=== PATIENT | male | born 1970 | race Hispanic/Latino ===

== ENCOUNTER → 2019-10-28 | Day surgery (SDC) | payer OTHER ==
[2019-10-24 10:06] LABS: ANION GAP 13.5 mmol/L (8-16); BLOOD UREA NITROGEN 20 mg/dL (7-26); BUN/CREATININE RATIO 26 (6-25); CALCIUM 8.8 mg/dL (8.4-10.2); CARBON DIOXIDE 24 mmol/L (22-29); CHLORIDE 106 mmol/L (98-107); CREATININE, SERUM 0.78 mg/dL (0.72-1.25); EST GLOMERULAR FILTRATION RATE > 60 ML/MIN (60-); GLUCOSE 139 mg/dL (74-118); POTASSIUM 4.5 mmol/L (3.5-5.1); SODIUM 139 mmol/L (136-145)
[~2019-10-28] VITALS: Ht 165.1 cm; Wt 108.9 kg
[~2019-10-28] MED LIST: B&O 60MG R/S 60 MG SUPP PR ONE; CEFTRIAXONE SOD 1 GM/NS 50 ML 50 ML IV ONE; DEXAMETHASONE SOD PHOS INJ 4 MG/ML VIAL ONE; FENTANYL CITRATE/PF 100MCG/2 ML INJ ONE; GENTAMICIN 80MG/NS 100 ML 200 ML IV ONE; IOPAMIDOL 300MG/ML 50ML INFUS..BTL IV ONE; LIDOCAINE HCL 2% LOCAL INJ 5 ML SDV VIAL INJ ONE; LISINOPRIL10 MG PO; METFORMIN HCL500 MG PO; MIDAZOLAM HCL 2 MG/2 ML VIAL ONE; ONDANSETRON HCL INJ 2MG/ML 2ML 2 MG/ML VIAL ONE; PROPOFOL IV EMULSION 10 MG/ML 20 ML VIAL ONE; SEVOFLURANE INHAL SOLN 250 ML PEN BTL ONE
[2019-10-28 13:55] VITALS: BP 120/71
--- NOTE | 2019-10-29 19:54 | Operative Report ---
DATE OF PROCEDURE: 10/28/2019 SURGEON: Gabino Lafleur MD PREOPERATIVE DIAGNOSES: 1. Obstructive BPH. 2. Urinary tract infections. 3. Microscopic hematuria. 4. Fairly severe phimosis, needing circumcision. POSTOPERATIVE DIAGNOSES: 1. Obstructive BPH. 2. Urinary tract infections. 3. Microscopic hematuria. 4. Fairly severe phimosis, needing circumcision. OPERATIONS PERFORMED: 1. Cystourethroscopy with bilateral ureteral catheterization and retrograde ureteropyelography (separate procedure performed for microhematuria and urinary tract infections). 2. Interpretation of retrograde ureteropyelography. 3. Supervision of fluoroscopy, no radiologist present. 4. Cystourethroscopy with implantation of 4 UroLift implants (separate procedure performed for the obstructive BPH). ANESTHESIA: General. COMPLICATIONS: None. CLINICAL SUMMARY: Oh See is a 49-year-old man with the above preoperative diagnoses. He was brought for the above procedures. He is aware of the risks of bleeding, infection, injury to adjacent structures, need for additional procedures and he elected to proceed. OPERATIVE PROCEDURE IN DETAIL: Informed consent was verified. Oh See was properly identified, taken to the operating room, placed on the cystoscopy table in supine position. Anesthesia was uneventfully begun. The patient was then carefully and gently repositioned in dorsal lithotomy position with all pressure points well padded. His genitalia were prepared and draped in usual sterile fashion. The cystoscope sheath with the visual obturator in place was atraumatically inserted into the patient's urethra. It was guided down the unremarkable distal urethra through the normal sphincteric region through the prostate bed, which was significant for visually obstructing bilobar BPH with a slightly elevated median bar. We entered the patient's bladder. Panendoscopy revealed grade 1 trabeculations, but no tumors, no stones, and no diverticula. No suspicious mucosal lesions were identified. An 8-Yi catheter was used to cannulate each ureter and retrograde ureteropyelograms were performed. Interpretation of retrograde ureteropyelography contrast was instilled in retrograde fashion bilaterally. There were no tumors, no stones, and no diverticula. Unobstructed drainage was observed bilaterally fluoroscopically. There was medial deviation of the right ureter as it coursed over the iliac vessel. The cystoscope was withdrawn. The UroLift cystoscope was atraumatically placed with visual obturator. Four UroLift implants were then deployed. Two implants were deployed, 1.5 cm distal to the bladder neck anterolaterally and two were deployed anterolaterally at the level of the verumontanum. This resulted in relatively open prostate bed. The patient's bladder was drained. The scope was withdrawn. A belladonna opium suppository was placed revealing a 40 g prostate that is smooth and nonfluctuant and without any nodules. The patient was then uneventfully reversed from anesthesia and taken to the recovery room in stable condition. There were no complications to the procedure. The patient tolerated the procedure well. Estimated blood loss was minimal. Explicit postoperative instructions were given. We will plan to follow the patient up in the office, at which point, we will perform uroflowmetry and bladder ultrasonography. Ongoing urological followup is a must. At some point, the patient will need a circumcision. MD KEITH Zamora/JOHNNAL /[id number]
== END | disposition home or self-care (01) ==
LOC: OR 09:46
PROVIDERS: ATTEND Urology
DX: N40.1 Benign prostatic hyperplasia with lower urinary tract symptoms (principal); N13.8 Other obstructive and reflux uropathy; N47.1 Phimosis; N39.0 Urinary tract infection, site not specified; N32.89 Other specified disorders of bladder; I10 Essential (primary) hypertension; E11.9 Type 2 diabetes mellitus without complications; E66.9 Obesity, unspecified; Z01.810 Encounter for preprocedural cardiovascular examination; Z01.812 Encounter for preprocedural laboratory examination; Z11.59 Encounter for screening for other viral diseases; Z79.84 Long term (current) use of oral hypoglycemic drugs; Z86.73 Personal history of transient ischemic attack (TIA), and cerebral infarction without residual deficits; Z87.891 Personal history of nicotine dependence
CPT/HCPCS: 52005; C9740; 36415; 74420; 80048; 82948; 93005; C1758; J0696; J1100; J1580; J2001; J2250; J2405; J3010; L8699; U0002